=== PATIENT | female | born 1995 | race Two or more races ===

== ENCOUNTER 2024-05-17 20:20 | Emergency (ER) | payer OTHER ==
[2024-05-17 20:39] VITALS: BP 122/79; PULSE 77; RESP 20; TEMP 98.4; BMI 24.6
[2024-05-17] MEDS ORDERED: IBUPROFEN 400 MG TABLET (FP) PO ONE ×2 (20:59→21:09)
[2024-05-17] MEDS ORDERED: LIDOCAINE HCL 1%, 10 MG/ML (50 mL VIAL) SQ ONE (21:06)
[2024-05-17] MEDS ORDERED: LIDOCAINE HCL 1%, 10 MG/ML (20ML VIAL) ONE (21:08)
== END 2024-05-17 21:51 | disposition home or self-care (01) ==
LOC: JERFT 20:20 → JER 20:20 → JERFT 21:51
PROC: 0YQXXZZ Repair Right 5th Toe, External Approach (ICD-10-PCS; principal; 2024-05-17)
DX: S61.307A Unspecified open wound of left little finger with damage to nail, initial encounter (principal); W17.89XA Other fall from one level to another, initial encounter
CPT/HCPCS: 99283-25